=== PATIENT | male | born 1975 | race Two or more races ===

== ENCOUNTER → 2024-11-30 | Outpatient (CLI) | payer BC, SELFPAY ==
--- NOTE | 2024-11-30 | XR_ITS ---
Examination: PA lateral chest 2 views TECHNIQUE: Upright PA lateral chest 2 views Exam date and time: November 30, 2024 1121 hours Comparison January 21, 2016 INDICATIONS: Night sweats coughing beginning one week ago FINDINGS: Normal heart size Lungs are clear Mild hyperexpansion IMPRESSION: No pneumonia identified
== END | disposition home or self-care (01) ==
PROVIDERS: PCP Internal Medicine; Referring Provider Internal Medicine; Visit Provider Internal Medicine
DX: R61 Generalized hyperhidrosis (principal); R05.9 Cough, unspecified
CPT/HCPCS: 71046

== ENCOUNTER 2025-02-23 10:20 | Day surgery (SDC) | payer BC, SELFPAY ==
--- NOTE | 2025-02-21 10:54 | EKG_ITS ---
[facility] Test Date: 2025-02-21 Pat Name: RADHA DE PAZ Department: Room: - Gender: Male Battery [employer]er: BRENDON : 1975 Requested By: Alycai Stevens Order Number: [id number] Reading MD: Alycia Stevens Measurements Intervals [place] Rate: 76 P: 43 NM: 159 QRS: 76 QRSD: 100 T: 44 QT: 348 QTc: 392 Interpretive Statements SINUS RHYTHM Compared to ECG 07/31/2020 08:19:58 Sinus bradycardia no longer present /store/[id number]
[2025-02-21 11:28] LABS: Basophils % (Auto) 0 % (0-2.5); Eosinophils # (Auto) 0.1 Thou/mm3 (0.0-0.5); Eosinophils % (Auto) 1 % (0-10); Hematocrit 42.8 % (41.0-53.0); Hemoglobin 14.5 g/dL (13.5-16.0); Immature Granulocytes % (Auto) 0 % (0-0); Immature Granulocytes Auto 0.03 Thou/mm3 (0.00-0.00); Lymphocytes # (Auto) 1.6 Thou/mm3 (1.0-4.8); Lymphocytes % (Auto) 22 % (10-50); Mean Corpuscular HGB Conc 33.9 g/dl (31.0-37.0); Mean Corpuscular Hemoglobin 27.9 pg (25.0-35.0); Mean Corpuscular Volume 82 fL (80-100); Monocytes # (Auto) 0.6 Thou/mm3 (0.0-0.8); Monocytes % (Auto) 8 % (0-12); Neutrophils % (Auto) 68 % (37-80); Nucleated Red Blood Cell % 0 /100 WBC (0); Platelet Count 368 Thou/mm3 (140-440); RDW Standard Deviation 39.8 fL (35.1-43.9); White Blood Count 7.3 Thou/mm3 (3.8-10.6)
[2025-02-21 11:32] LABS: INR 0.9 (0.9-1.3); Partial Thromboplastin Time 27.1 Seconds (22.0-36.0); Prothrombin Time 10.3 Seconds (9.0-12.2)
[2025-02-21 12:01] LABS: Alanine Aminotransferase 37 U/L (10-49); Albumin, Serum 4.8 gm/dL (3.5-5.0); Albumin/Globulin Ratio 2.4 (1.2-2.2); Alkaline Phosphatase 68 U/L (46-116); Anion Gap 12 (7-16); BUN/Creatinine Ratio 17 Ratio (12-20); Bilirubin,Total 0.6 mg/dL (0.3-1.2); Blood Urea Nitrogen 15 mg/dL (9-23); Calcium 9.7 mg/dL (8.3-10.6); Calcium (Corrected) 9.7 mg/dL (8.5-10.1); Carbon Dioxide 27.3 mMol/L (20.0-31.0); Chloride 101 mMol/L (98-107); Creatinine (Component) 0.9 mg/dL (0.6-1.3); Glucose 110 mg/dL (74-106); Osmolality,Calculated 281 (275-295); Potassium 4.4 mMol/L (3.4-5.1); Sodium 140 mMol/L (136-145); Total Protein 6.8 gm/dL (5.7-8.2); eGFR > 60 See Note
[2025-02-22 15:17] VITALS: BMI 27.2
[2025-02-23 11:01] VITALS: BP 121/89; PULSE 88; RESP 16; TEMP 37.1; O2SAT 96; BMI 25.8
[2025-02-23] MEDS: RINGERS LACTATED 1000 ML 1,000 ML 20 ML IV (11:08)
[2025-02-23 12:34] VITALS: BP 108/64; PULSE 89; RESP 16; TEMP 36.9; O2SAT 100
[2025-02-23 12:44] VITALS: BP 101/72; PULSE 83; RESP 16; O2SAT 99
[2025-02-23 12:54] VITALS: BP 112/74; PULSE 79; RESP 18; O2SAT 98
[2025-02-23 13:17] VITALS: BP 107/78; PULSE 77; RESP 18; TEMP 36.7; O2SAT 99
== END 2025-02-23 13:17 | disposition home or self-care (01) ==
PROVIDERS: PCP Internal Medicine; Referring Provider Specialist; Visit Provider Specialist
PROC: 0DBE8ZX Excision of Large Intestine, Via Natural or Artificial Opening Endoscopic, Diagnostic (ICD-10-PCS; CPT 45380; principal; 2025-02-23 11:15)
DX: K64.9 Unspecified hemorrhoids; K57.30 Diverticulosis of large intestine without perforation or abscess without bleeding; Z01.810 Encounter for preprocedural cardiovascular examination; D12.8 Benign neoplasm of rectum
CPT/HCPCS: 45385; 45380; 36415; 80053; 85025; 85610; 85730; 93005; J7120